=== PATIENT | female | born 1950 | race Caucasian/White ===

== ENCOUNTER 2021-12-14 07:44 | Emergency (ER) | payer MEDICARE, MEDICAID ==
[~2021-12-14] VITALS: Ht 167.6 cm; Wt 83.6 kg
[~2021-12-14 07:44] MED LIST: CLOT15CR73 TP; POTA-207 PO
[2021-12-14 08:25] LABS: CLARITY,URINE SLIGHTLY CLOUDY (Clear); COLOR,URINE YELLOW (Yellow); GLUCOSE, URINE NEGATIVE (Neg); KETONES,URINE NEGATIVE (Neg); LEUKOCYTE ESTERASE ,URINE SMALL (Neg); NITRITES, URINE NEGATIVE (Neg); OCCULT BLOOD,URINE SMALL (Neg); PROTEIN,URINE NEGATIVE (Neg); UROBILINOGEN,URINE 0.2 E.U/dL (0.2-1.0)
[2021-12-14 08:29] LABS: UA COLLECTION TYPE CLN CATCH MIDSTREAM
[2021-12-14 08:47] LABS: MUCUS STRANDS MODERATE /LPF (Neg); SQUAMOUS EPITHELIAL CELL,UR MANY /LPF (FEW)
[2021-12-14 08:48] LABS: HYALINE CASTS 0-3 /LPF (NEGATIVE)
[2021-12-14 08:50] LABS: BACTERIA,URINE 1+ /HPF (Neg); RBC,URINE 0-2 /HPF (0-2)
[2021-12-14 08:54] LABS: BASOPHILS # (AUTO) 0.1 X10'3 (0-0.2); BASOPHILS % (AUTO) 0.6 % (0-1); HEMOGLOBIN 12.3 g/dl (12.0-16.0); MONOCYTES # (AUTO) 0.6 X10'3 (0-0.9); NEUTROPHILS # (AUTO) 6.4 X10'3 (1.8-7.7); NEUTROPHILS % (AUTO) 36.9 % (42-75); WHITE BLOOD COUNT 17.3 X10'3 (4.5-11.0)
[2021-12-14 08:55] LABS: EOSINOPHILS # (AUTO) 0.1 X10'3 (0-0.9); EOSINOPHILS % (AUTO) 0.8 % (0-6); HEMATOCRIT 37.6 % (35.0-45.0); LYMPHOCYTES % (AUTO) 58.2 % (21-51); MEAN CORPUSCULAR HEMOGLOBIN 28.6 PG (27.0-31.0); MEAN CORPUSCULAR HGB CONC 32.8 g/dL (33.0-36.5); MEAN CORPUSCULAR VOLUME 87.2 FL (78-98); MEAN PLATELET VOLUME 8.9 FL (7.4-10.4); MONOCYTES % (AUTO) 3.5 % (2-12); PLATELET COUNT 254 X10'3 (140-440); RED BLOOD COUNT 4.32 X10'6 (4.20-5.60)
[2021-12-14] MEDS ORDERED: piperacillin/tazo 3.375gm/50ml 50 ML IV ONE (09:05)
[2021-12-14] MEDS ORDERED: ondansetron/PF 4mg/2ml inj IV ONE (09:10)
[2021-12-14] MEDS ORDERED: morphine 4 MG/ML inj SYRINge IV PRN (09:10)
[2021-12-14 09:15] LABS: ALANINE AMINOTRANSFERASE 19 U/L (12-78); ALBUMIN 3.7 G/DL (3.4-5.0); ALKALINE PHOSPHATASE 95 IU/L (46-116); ANION GAP 8 (8-16); ASPARTATE AMINO TRANSFERASE 11 U/L (10-37); BILIRUBIN,TOTAL 0.4 MG/DL (0.1-1.0); BLOOD UREA NITROGEN 12 MG/DL (7-18); BUN/CREATININE RATIO 11.1 (6.6-38.0); CHLORIDE 104 MMOL/L (99-107); CREATININE 1.08 MG/DL (0.40-0.90); GLUCOSE 118 MG/DL (70-104); LIPASE 405 U/L (73-393); SODIUM 139 MMOL/L (135-145); TOTAL CARBON DIOXIDE 26.9 MMOL/L (24-32); TOTAL PROTEIN 7.3 G/DL (6.4-8.2); eGFR 50 ML/MIN
[2021-12-14 09:20] LABS: CALCIUM 8.6 MG/DL (8.5-10.1)
[2021-12-14 10:44] LABS: PLATELET ESTIMATE NORMAL; TOTAL CELLS COUNTED 100
[2021-12-14 10:45] LABS: SMUDGE CELLS 2+
[2021-12-14 10:46] LABS: ELLIPTOCYTES FEW
[2021-12-14 10:47] VITALS: BP 145/86
== END 2021-12-14 12:32 | disposition home or self-care (01) ==
LOC: ER 07:45
DX: N85.9 Noninflammatory disorder of uterus, unspecified (principal); N83.9 Noninflammatory disorder of ovary, fallopian tube and broad ligament, unspecified; R10.30 Lower abdominal pain, unspecified; E78.5 Hyperlipidemia, unspecified; F17.200 Nicotine dependence, unspecified, uncomplicated
CPT/HCPCS: 74176; 80053; 81001; 83690; 85007; 85025; 96365; 96375; 99284; J2270; J2405; J2543; J7030

== ENCOUNTER 2023-09-28 12:51 | Emergency (ER) | payer MEDICARE, MEDICAID ==
[~2023-09-28] VITALS: Ht 167.6 cm; Wt 89.5 kg
[2023-09-28 14:11] VITALS: BP 177/100; PULSE 75; RESP 18; O2SAT 7
[2023-09-28] MEDS ORDERED: HYDR-3965 PO (16:15)
[2023-09-28 17:05] VITALS: TEMP 97.8
== END 2023-09-28 17:08 | disposition home or self-care (01) ==
LOC: ER 12:52
DX: S62.633A Displaced fracture of distal phalanx of left middle finger, initial encounter for closed fracture (principal); F41.9 Anxiety disorder, unspecified; F32.A Depression, unspecified; Z60.2 Problems related to living alone; X58.XXXA Exposure to other specified factors, initial encounter; Y93.89 Activity, other specified; Y92.89 Other specified places as the place of occurrence of the external cause; Y99.8 Other external cause status
CPT/HCPCS: 73130; 99283